=== PATIENT | male | born 1990 | race Caucasian/White ===

== ENCOUNTER 2020-09-13 13:18 | Emergency (ER) | payer OTHER ==
[~2020-09-13] VITALS: Ht 172.7 cm; Wt 135.2 kg
[2020-09-13 13:34] VITALS: BP 118/67
--- NOTE | 2020-09-13 13:38 | NUR ---
Pt ambulated to lobby with steady gait
--- NOTE | 2020-09-13 13:50 | NUR ---
Pt ambulated to bed 12 with steady gait
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
--- NOTE | 2020-09-13 14:27 | NUR ---
Dr. Palma at the pt bedside for evaluation.
[2020-09-13] MEDS ORDERED: LIDOCAINE MPF 1% 10 MG/ML VIAL INJ ONE (14:50)
[2020-09-13 15:48] VITALS: BP 114/68
--- NOTE | 2020-09-13 15:49 | NUR ---
Patient discharged with v/s stable. Written and verbal after care instructions given and explained. Patient verbalized understanding. Ambulatory with steady gait. All questions addressed prior to discharge. Advised to follow up with PMD.
== END 2020-09-13 15:49 | disposition home or self-care (01) ==
LOC: MED 13:18
DX: S01.91XA Laceration without foreign body of unspecified part of head, initial encounter (principal); J45.909 Unspecified asthma, uncomplicated; V19.9XXA Pedal cyclist (driver) (passenger) injured in unspecified traffic accident, initial encounter; Y93.89 Activity, other specified; Y92.89 Other specified places as the place of occurrence of the external cause; Y99.8 Other external cause status
CPT/HCPCS: 12002; 99282; J2001